=== PATIENT | female | born 1950 ===

== ENCOUNTER 2020-08-22 23:11 | Emergency (ER) | payer OTHER ==
[~2020-08-22] VITALS: Ht 152.4 cm; Wt 58.5 kg
[2020-08-22] MEDS ORDERED: COZAAR50 MG (23:31)
[2020-08-22] MEDS ORDERED: SINEMET 25-1001 EACH (23:31)
[2020-08-22] MEDS ORDERED: SYNTHROID75 MCG (23:31)
[2020-08-22] MEDS ORDERED: INDERAL LA80 MG (23:32)
[2020-08-22] MEDS ORDERED: NASAL MIST126 ML (23:32)
== END 2020-08-23 02:11 ==
LOC: ER 23:11
DX: I16.0 Hypertensive urgency (principal); M54.2 Cervicalgia